=== PATIENT | female | born 1930 | race Caucasian/White ===

== ENCOUNTER 2017-04-18 14:24 | Inpatient (IN) | payer MEDICARE, OTHER ==
[2017-04-18] MEDS ORDERED: traMADol TAB* 50 MG PO ONE (14:40)
--- NOTE | 2017-04-18 15:47 | RAD ---
INDICATION: Trauma, hip pain. COMPARISON: Comparison is made with a prior x-ray study of the left hip from November 12, 2014. TECHNIQUE: An AP view of the pelvis and frontal and lateral views of both hips were obtained. FINDINGS: The patient is status post total left hip replacement surgery. The bones and prostheses are in normal alignment. No fracture is seen. 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 IMPRESSION: NO EVIDENCE FOR FRACTURE, IF THE PATIENT'S SYMPTOMS PERSIST RECOMMEND FOLLOW-UP IMAGING.
--- NOTE | 2017-04-18 15:51 | RAD ---
INDICATION: Trauma left ankle deformity. TECHNIQUE: 3 views of the left ankle were obtained. FINDINGS: There is diffuse soft tissue swelling. The bones appear osteopenic. There is anterior subluxation of the talus relative to the tibia. There is a transverse displaced fracture of the medial malleolus. The distal fracture fragment is distracted, rotated and displaced slightly lateral relative to the proximal fracture fragment. There is also an oblique fracture of the distal fibula the distal fragment is displaced slightly posterior approximately 1 cortical diameter. There is widening of the medial ankle mortise. IMPRESSION: 1. DISPLACED BIMALLEOLAR FRACTURE. 2. WIDENING OF THE MEDIAL ANKLE MORTISE. 3. ANTERIOR SUBLUXATION OF THE TALUS RELATIVE TO THE TIBIA.
--- NOTE | 2017-04-18 15:54 | RAD ---
INDICATION: Left lower leg injury. TECHNIQUE: 2 views of the left lower leg were obtained. FINDINGS: There is diffuse soft tissue swelling. The bones appear osteopenic. Again note is made of a bimalleolar fracture of the ankle with anterior subluxation of the talus. No additional fractures are seen. IMPRESSION: NO ADDITIONAL FRACTURES ARE SEEN.
[2017-04-18 15:58] LABS: Hematocrit 44 % (35-47); Hemoglobin 14.9 g/dl (12.0-16.0); Mean Corpuscular HGB Conc 34 g/dl (31-36); Mean Corpuscular Hemoglobin 33 pg (27-31); Mean Corpuscular Volume 99 fL (80-97); Mean Platelet Volume 11 um3 (7.4-10.4); Red Blood Count 4.49 10^6/ul (4.0-5.4); Red Cell Distribution Width 15 % (10.5-15); White Blood Count 6.9 10^3/ul (3.5-10.8)
[2017-04-18 16:32] LABS: Albumin 4.3 g/dL (3.2-5.2); BUN/Creatinine Ratio 15.9 (8-20); Calcium 9.1 mg/dL (8.6-10.3); EGFR African American 62.7 (>60); EGFR Non-African American 48.7 (>60); Globulin 2.5 g/dL (2-4); Potassium 3.8 mmol/L (3.5-5.0); Total Bilirubin 1.3 mg/dL (0.2-1.0); Total Protein 6.8 g/dL (6.4-8.9)
[2017-04-18 16:45] LABS: Erythrocyte Sed Rate 9 mm/Hr (0-40)
[2017-04-18] MEDS ORDERED: Lidocaine 2% 10 ML* VIAL INJ ONE (17:19)
[2017-04-18] MEDS ORDERED: Morphine INJ* 2 MG/ML 1 ML CARPUJECT IV ONE (17:22)
[2017-04-18] MEDS ORDERED: Lidocaine 2% PF * 5 ML VIAL INJ ONE (17:30)
[2017-04-18] MEDS ORDERED: oxyCODONE/Acetamin 5/325 MG* TAB PO PRN (18:28)
--- NOTE | 2017-04-18 18:45 | RAD ---
INDICATION: Traumatic bimalleolar fracture left ankle status post reduction. COMPARISON: Comparison is made with a prior study of the same day. TECHNIQUE: 2 views of the left ankle were obtained. FINDINGS: The bones are visualized through a plaster splint. Again note is made of a displaced bimalleolar fracture. There is widening of the ankle mortise and mild anterior subluxation of the talus relative to the tibia which appears unchanged. IMPRESSION: TRIMALLEOLAR FRACTURE SUBLUXATION STATUS POST EXTERNAL REDUCTION.
[2017-04-18] MEDS: Carvedilol TAB* 3.125 MG PO SCH (20:32)
--- NOTE | 2017-04-18 20:57 | HP ---
HISTORY AND PHYSICAL: DATE OF ADMISSION: 04/18/17 ADMITTING PROVIDER: Gaudencio Viveros MD PRIMARY CARE PHYSICIAN: Dr. Stewart. PRIMARY UNDERCOAT SPRAYER: Dr. Romeo. CHIEF COMPLAINT: Mechanical fall resulting in left bimalleolar fracture. HISTORY OF PRESENT ILLNESS: The patient is an 87-year-old female with past medical history of systolic CHF; atrial fibrillation, status post pacemaker and ablation; hypertension, who lives alone. The patient at 4:30 a.m. on the morning of admission was getting up to use the restroom and found herself on the floor. She was slowly able to crawl towards the kitchen by 8 hours later and make a phone call for her son to alert him of the situation. She was transported to [facility] Emergency Room for further evaluation. She had an x-ray of her left ankle, which demonstrated a displaced bimalleolar fracture with widening of the medial ankle mortise and anterior subluxation of the talus relative to the tibia with diffuse tissue swelling. The patient has a history of left hip replacement. Hip x- ray demonstrated no evidence for fracture. Lower extremity x-ray demonstrated no other fractures. The patient was evaluated by Dr. Leal of Orthopedics and he was able to sublux and reduce the fracture and applied a splint. His plan is to have surgical management after the tissue swelling has decreased and wanted to see the patient again on with additional x-rays. The patient as noted lives alone in a multi-story building and does have [facility] services on Wednesday and usually, but now services available until Wednesday of this week. The patient is recommended to be completely nonweightbearing on this left extremity and the patient was thought to be not safe for discharge home without adequate support system in place. Son is at the bedside. The patient is a DNR, did not bring her MOLST form with her. PAST MEDICAL HISTORY: Hypertension; systolic CHF (ejection fraction 20% to 25% , December 2014); atrial fibrillation, status post ablation procedure and permanent pacemaker placement, on Xarelto. PAST SURGICAL HISTORY: Includes atrial fibrillation ablation and left hip replacement. MEDICATIONS: Include: 1. Xarelto 15 mg daily. 2. Potassium chloride 10 mEq p.o. daily. 3. Multivitamin 1 tab p.o. daily. 4. Coreg 3.125 mg p.o. b.i.d. 5. Biotin 1 mg p.o. b.i.d. 6. Lasix seemingly 20 mg p.o. daily after an initial taper over the summer, but both son and the patient are not able to give full accounting of this medication. ALLERGIES: To BACTRIM, , PRAVASTATIN, WINE, LATEX. FAMILY MEDICAL HISTORY: The patient's mother and father of heart disease around 72 and 73 respectively. SOCIAL HISTORY: The patient is a never smoker. Does consume small amount of whiskey each day mixed with ice and lemonade. No other drug use. REVIEW OF SYSTEMS: A complete 14-point review of systems was negative except as per HPI. The patient denies any shortness of breath, paroxysmal nocturnal dyspnea, coughing, fevers, chills, nausea, vomiting, diarrhea, blood per bowel movements, or melena. The patient does attest to some baseline fatigue and she usually sleeps in her study where she has a hospital bed instead of going upstairs to her bedroom. The patient denies any significant lower extremity swelling at the moment. Pain is currently well controlled. PHYSICAL EXAMINATION GENERAL: The patient is in no acute distress, lying supine in [facility]. VITAL SIGNS: Blood pressure 182/84, temperature 98.1, pulse rate 76, respiratory rate 20, satting 96% on room air. HEENT: Normocephalic, atraumatic. Pupils are equally round and reactive to light. Extraocular motions intact. Moist mucous membranes. NECK: Supple. No lymphadenopathy. LUNGS: Clear to auscultation bilaterally. Anteriorly with no wheezing, rales, or rhonchi. CARDIOVASCULAR: Regular rate and rhythm with no murmurs, rubs, or gallops. ABDOMEN: Soft, nontender, nondistended. No peritoneal signs. EXTREMITIES: Left lower extremity in a splint, soft tissue swelling observed near the toes. Right lower extremity with trace edema. SKIN: No rashes, no lesions. LABORATORY DATA: Includes white count 6.9, hemoglobin 14.9, hematocrit 44, platelets 137. Sodium 138, potassium 3.8, chloride 102, BUN 17, creatinine 1.07 , glucose 113, total bili 1.3, magnesium 2.0. AST 25, ALT 16, alk phos 81. Myoglobin 134.4, elevated. Total creatinine kinase 63 within normal limits. ASSESSMENT AND PLAN: 1. The patient is an 87-year-old female with past medical history significant for systolic congestive heart failure, last ejection fraction 20% to 25% with likely [id number] aortic stenosis, moderate tricuspid valve regurgitation , moderate mitral valve regurgitation; atrial fibrillation, status post ablation and pacemaker; hypertension; urinary incontinence, presenting with mechanical fall resulting in left bimalleolar ankle fracture, which has already been addressed in the emergency room by Dr. Leal, Orthopedics, with splint after realignment. The patient plans to have followup with Dr. Leal on and eventual surgery after soft tissue swelling reduces. The patient does not have a safe discharge plan from the emergency room, will be admitted to inpatient status, evaluated by Physical Therapy with potential ultimate discharge plan to either a long-term facility or much more support at home than she currently has as she lives alone and is to be nonweightbearing on her left extremity for at least 8 weeks and has significant comorbidities. 2. For her systolic congestive heart failure, not currently volume overloaded. We will continue her Lasix 20 mg daily, her Coreg 3.125 mg daily, consider repeating echo if Dr. Leal request cardiac risk stratification. We will hold her Xarelto for her atrial fibrillation given the hematoma reported near the trauma site. We will put her on medicine telemetry unit, evaluate with BMP , CBC daily for evidence of acute blood loss anemia or electrolyte disturbance. We will continue her potassium chloride 10 mEq daily. The patient is a DNR. Son is her medical surrogate, Ross Nguyen. No DVT prophylaxis given hematoma and risk for bleeding and no SCDs on left leg, but can place on right leg. [id number]/[facility] #: [id number] [facility]
--- NOTE | 2017-04-18 21:13 | CONS ---
CONSULTATION REPORT: DATE OF CONSULT: 04/18/17 REASON FOR CONSULT: Left ankle fracture, bimalleolar, displaced. HISTORY OF PRESENT ILLNESS: The patient is an 87-year-old woman, who lives alone and ambulates with a 4-pronged cane, who lives down the road from her son , who presented to the [facility] Department on April 18 after a fall at home at 4 a.m. The patient states that she fell at home at approximately 4 a.m. She had significant pain about the left ankle. She was unable to get up and walk. She shimmied, moved to the side on the ground a little bit over time and eventually got to a phone and called for help. The patient was down on the ground for a long period of time, perhaps 10 hours. The patient was eventually brought in by her son to the emergency department and x- rays diagnosed her with a left ankle fracture. The patient reports that she had contralateral right ankle fracture surgery by Dr. Pringle approximately 4 years ago. The patient has also had a right hip replacement on 11/12/14. The patient's only complaint now is left ankle pain and swelling. PAST MEDICAL HISTORY: Hypertension, atrial fibrillation, syncope, pacemaker, cardiomyopathy. PAST SURGICAL HISTORY: Left total hip arthroplasty, right ankle fracture, open reduction internal fixation. MEDICATIONS: As a last visit to the emergency department: 1. Simethicone p.r.n.. 2. Naproxen p.r.n. 3. Metolazone. 4. Furosemide. 5. Carvedilol. 6. Aspirin 81 mg p.o. daily. ALLERGIES: BACTRIM (diarrhea), DOFETILIDE (unknown), PRAVASTATIN (unknown), SULFA ANTIBIOTICS (unknown), VALSARTAN (unknown). SOCIAL HISTORY: Denies drug use. 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 Her son lives nearby and is doting. REVIEW OF SYSTEMS: No headache. No chest pain, heart palpitations, shortness of breath. No nausea, vomiting, diarrhea or abdominal pain. PHYSICAL EXAM: At 2:25 p.m., vitals are temperature 98.1 degrees Fahrenheit, heart rate 76, blood pressure 182/84, respiratory rate 20, and oxygen saturation 96% on room air. No acute distress, alert and oriented, appropriate mood and affect. Appropriate dressing and hygiene. Gait is not assessed secondary to injury. Well-coordinated bilateral upper and lower extremities. Left lower extremity exam shows significant soft tissue swelling or bruising about the left ankle. Skin is intact. Skin does not wrinkle medial or lateral ankle. Neurovascularly intact distally. Left lower extremity exam demonstrates no shortening of the hip and neutral rotation of the lower extremity. No pain with passive range of motion of the left hip. DIAGNOSTIC STUDIES/LAB DATA: Labs: White blood cell count 6.9, creatinine 1.07 , myoglobin 134.4, C-reactive protein 15.31. Imaging: X-rays of the left ankle showed a bimalleolar ankle fracture with lateral talar shift. Because of the plantar flexed position of the ankle, there is also some anterior subluxation of the talus. Right hip x-rays were also obtained in the emergency department. Left and right hip x-rays were obtained. Left total hip arthroplasty is in place. No fractures. No dislocation. ASSESSMENT: Displaced left ankle bimalleolar fracture with lateral talar shift PLAN: 1. Secondary to the patient's significant soft tissue swelling currently, she is not a candidate for surgery tonight or tomorrow morning and the swelling needs to resolve prior to operative management, which she will require. 2. Performed hematoma block, left ankle joint. Verbal consent, sterile technique, tolerated well. Placed 22 gauge spinal needle into ankle joint. Aspirated 4 cc of blood. I then infused 8 cc of lidocaine without epinephrine. 3. Ten minutes after the ankle lidocaine block, performed a manipulation of the ankle fracture to try to undo the lateral talar tilt as well as to dorsiflex more the ankle. Applied a posterior split followed by a sugar tong splint. 4. The patient should be nonweightbearing left lower extremity. 5. The patient can go home from the emergency department. Due to lack of social support, the patient and her son may decide to have her admitted for 1 night, until they can establish a safe environment at home given her nonweightbearing status. Given the elevated myoglobin level, additional medical workup may be involved to evaluate for rhabdomyolysis, although creatinine was only slightly elevated. 6. The patient should follow up with me in clinic this , 04/22/17. At that point, we can convert it to a cast and discuss possible surgical dates. 7. I would like postreduction radiographs to see if we improved the reduction with the manipulation maneuver. [id number]/[facility] #: [id number] KAREY
[2017-04-19] MEDS ORDERED: amLODIPine TAB* 5 MG PO ONE (00:02)
[2017-04-19] MEDS ORDERED: hydrALAZINE IV* 20 MG/ML VIAL IV SLOW PU PRN (00:02)
[2017-04-19 05:20] LABS: Hematocrit 40 % (35-47); Hemoglobin 13.2 g/dl (12.0-16.0); Mean Corpuscular HGB Conc 33 g/dl (31-36); Mean Corpuscular Hemoglobin 33 pg (27-31); Mean Corpuscular Volume 100 fL (80-97); Mean Platelet Volume 11 um3 (7.4-10.4); Red Blood Count 3.99 10^6/ul (4.0-5.4); Red Cell Distribution Width 15 % (10.5-15); White Blood Count 5.5 10^3/ul (3.5-10.8)
[2017-04-19 05:22] LABS: Urine Bacteria 1+ (Absent); Urine Bilirubin Negative (Negative); Urine Glucose Negative (Negative); Urine Nitrite Negative (Negative)
[2017-04-19 05:22] LABS: Add Diff/Slide Review? Slide Review Added; Comments Flag Yes
[2017-04-19 05:38] LABS: BUN/Creatinine Ratio 17.7 (8-20); Calcium 8.4 mg/dL (8.6-10.3); EGFR Non-African American 55.2 (>60); Potassium 3.7 mmol/L (3.5-5.0)
[2017-04-19] MEDS: Prenatal Vitamin TAB PO SCH (08:31)
[2017-04-19] MEDS: Carvedilol TAB* 3.125 MG PO SCH ×2 (08:31→21:23)
[2017-04-19] MEDS: Potassium Chlor TAB* 10 MEQ TAB.ER PO SCH (08:31)
[2017-04-19] MEDS: Furosemide TAB* 20 MG PO SCH (08:31)
[2017-04-19] MEDS ORDERED: Influenza VAC *QUAD* 2017-18* 0.5 ML SYRINGE IM ONE (09:00)
--- NOTE | 2017-04-19 10:36 | PN ---
Progress Note - Progress Note Date of Service: 04/19/17 SOAP: Subjective: 87 y/o female s/p mechanical fall with displaced cori fx, reduced in ER by Dr Leal, admitted for social reasons. patient reports understanding of injury and need for surgery. VSS overnight, afebrile. Pain controlled however patient states is painful. Concerned about mobility/ living situation. Objective: General- Well appearing, NAD AO, resting in bed comfortably MSK - Spling intact, no odor/ drainage noted, sensation grossly intact to L toes, + movement L toes, cap refill unable to be assessed due to painted nails. no erythema prox/ distal to splint. Vital Signs Temp 97.4 F 04/19/17 07:41 Pulse 69 04/19/17 07:33 Resp 20 04/19/17 08:00 BP 148/67 04/19/17 07:33 Pulse Ox 95 04/19/17 07:33 Intake & Output 04/18/17 04/19/17 04/19/17 18:59 06:59 18:59 Intake Total 800 440 Output Total 100 Balance 700 440 Weight 178 lb 9.6 oz Intake: Oral 800 440 Output: Urine 100 Other: Estimated Void Medium # Bowel Movements 0 # Voids 1 Assessment: 87 y/o female s/p mechanical fall with displaced cori fx, reduced in ER by Dr Leal. Plan: - Follow up with Dr. Leal on in clinic 04/22/2017 - Social work consult placed - Continue pain management - PT to work with patient today- non-weight bearing. Active Medications Generic Name Dose Route Start Last Admin Trade Name Holdenq PRN Reason Stop Dose Admin Carvedilol 3.125 mg 04/18/17 21:00 04/19/17 08:31 Coreg Tab* PO 3.125 mg BID JODEE Administration Furosemide 20 mg 04/19/17 09:00 04/19/17 08:31 Lasix Tab* PO 20 mg DAILY JODEE Administration Hydralazine HCl 5 mg 04/19/17 00:02 04/19/17 01:48 Apresoline Iv* IV SLOW PU 5 mg Q6H PRN Administration BLOOD PRESSURE Multivitamins 1 tab 04/19/17 09:00 04/19/17 08:31 Vitamin Tab* PO 1 tab DAILY JODEE Administration Oxycodone/Acetaminophen 1 tab 04/18/17 18:28 Percocet 5/325 Tab* PO Q6H PRN PAIN Potassium Chloride 10 meq 04/19/17 09:00 04/19/17 08:31 Klor Con Er Tab* PO 10 meq DAILY JODEE Administration
--- NOTE | 2017-04-19 15:45 | PN ---
Subjective Date of Service: 04/19/17 Interval History: LOUISE. Worked with PT, able to get to side of bed but unable to stand 2/2 dizziness. Wanting Rehab ([facility] referral sent). Objective Active Medications: Carvedilol (Coreg Tab*) 3.125 mg PO BID [facility] Last Admin: 04/19/17 08:31 Dose: 3.125 mg Furosemide (Lasix Tab*) 20 mg PO DAILY [facility] Last Admin: 04/19/17 08:31 Dose: 20 mg Hydralazine HCl (Apresoline Iv*) 5 mg IV SLOW PU Q6H PRN PRN Reason: BLOOD PRESSURE Last Admin: 04/19/17 01:48 Dose: 5 mg Multivitamins ( Vitamin Tab*) 1 tab PO DAILY [facility] Last Admin: 04/19/17 08:31 Dose: 1 tab Oxycodone/Acetaminophen (Percocet 5/325 Tab*) 1 tab PO Q6H PRN PRN Reason: PAIN Potassium Chloride (Klor Con Er Tab*) 10 meq PO DAILY [facility] Last Admin: 04/19/17 08:31 Dose: 10 meq Vital Signs 04/18/17 04/18/17 04/18/17 18:41 19:30 23:52 Temperature 97.5 F 97.1 F Pulse Rate 87 70 Respiratory 22 20 Rate Blood Pressure 163/86 186/78 183/74 (mmHg) O2 Sat by Pulse 96 97 Oximetry 04/19/17 04/19/17 04/19/17 01:43 03:31 07:33 Temperature 98.2 F Pulse Rate 70 69 Respiratory 20 20 Rate Blood Pressure 184/78 149/60 148/67 (mmHg) O2 Sat by Pulse 97 95 Oximetry 04/19/17 04/19/17 04/19/17 07:41 08:00 11:44 Temperature 97.4 F 97.3 F Pulse Rate 71 Respiratory 20 20 Rate Blood Pressure 141/67 (mmHg) O2 Sat by Pulse 96 Oximetry Oxygen Devices in Use Now: Non-Rebreather Appearance: NAD Eyes: No Scleral Icterus, PERRLA Ears/Nose/Mouth/Throat: NL Teeth, Lips, Gums, Mucous Membranes Moist Neck: NL Appearance and Movements; NL JVP, Trachea Midline Respiratory: Symmetrical Chest Expansion and Respiratory Effort, Clear to Auscultation Cardiovascular: NL Sounds; No Murmurs; No JVD, RRR Abdominal: NL Sounds; No Tenderness; No Distention, No Hepatosplenomegaly Extremities: No Edema, - - left ankle in splint, sensation intact. Skin: No Rash or Ulcers Neurological: Alert and Oriented x 3 Nutrition: Taking PO's Result Diagrams: 04/19/17 05:02 04/19/17 05:02 Additional Lab and Data: Laboratory Results - last 24 hr 04/18/17 04/18/17 04/18/17 15:45 15:45 15:45 WBC 6.9 RBC 4.49 Hgb 14.9 Hct 44 MCV 99 H MCH 33 H MCHC 34 RDW 15 Plt Count 137 L MPV 11 H Neut % (Auto) 78.4 Lymph % (Auto) 10.3 L [place] % (Auto) 9.5 H Eos % (Auto) 1.0 Baso % (Auto) 0.8 Absolute Neuts (auto) 5.4 Absolute Lymphs (auto) 0.7 L Absolute Monos (auto) 0.7 Absolute Eos (auto) 0.1 Absolute Basos (auto) 0.1 Absolute Nucleated RBC 0 Nucleated RBC % 0 ESR 9 Sodium 138 Potassium 3.8 Chloride 102 Carbon Dioxide 25 Anion Gap 11 BUN 17 Creatinine 1.07 H Est GFR ( Amer) 62.7 Est GFR (Non-Af Amer) 48.7 BUN/Creatinine Ratio 15.9 Glucose 113 H Lactic Acid 1.8 Calcium 9.1 Magnesium 2.0 Total Bilirubin 1.30 H AST 25 ALT 16 Alkaline Phosphatase 81 Total Creatine Kinase 63 Myoglobin 134.4 H C-React Prot High Sens 15.31 Total Protein 6.8 Albumin 4.3 Globulin 2.5 Albumin/Globulin Ratio 1.7 Urine Color Urine Appearance Urine pH Ur Specific [place] Urine Protein Urine Ketones Urine Blood Urine Nitrate Urine Bilirubin Urine Urobilinogen Ur Leukocyte Esterase Urine WBC (Auto) Urine RBC (Auto) Ur Squamous Epith Cells Urine Bacteria Urine Glucose Urine Ascorbic Acid 04/19/17 04/19/17 04/19/17 00:05 05:02 05:02 WBC 5.5 RBC 3.99 L Hgb 13.2 Hct 40 MCV 100 H MCH 33 H MCHC 33 RDW 15 Plt Count 180 MPV 11 H Neut % (Auto) 72.6 Lymph % (Auto) 12.3 L [place] % (Auto) 11.9 H Eos % (Auto) 2.5 Baso % (Auto) 0.7 Absolute Neuts (auto) 4.0 Absolute Lymphs (auto) 0.7 L Absolute Monos (auto) 0.6 Absolute Eos (auto) 0.1 Absolute Basos (auto) 0 Absolute Nucleated RBC 0.01 Nucleated RBC % 0.1 ESR Sodium 135 Potassium 3.7 Chloride 102 Carbon Dioxide 26 Anion Gap 7 BUN 17 Creatinine 0.96 H Est GFR ( Amer) 71.0 Est GFR (Non-Af Amer) 55.2 BUN/Creatinine Ratio 17.7 Glucose 108 H Lactic Acid Calcium 8.4 L Magnesium Total Bilirubin AST ALT Alkaline Phosphatase Total Creatine Kinase Myoglobin C-React Prot High Sens Total Protein Albumin Globulin Albumin/Globulin Ratio Urine Color Yellow Urine Appearance Turbid Urine pH 5.0 Ur Specific [place] 1.020 Urine Protein 1+(30 mg/dl) H Urine Ketones Negative Urine Blood 1+ H Urine Nitrate Negative Urine Bilirubin Negative Urine Urobilinogen Negative Ur Leukocyte Esterase Trace H Urine WBC (Auto) 1+(6-10/hpf) H Urine RBC (Auto) Trace(0-2/hpf) Ur Squamous Epith Cells Present H Urine Bacteria 1+ H Urine Glucose Negative Urine Ascorbic Acid * H Assess/Plan/Problems-Billing Assessment: 87 yo female PMH systolic CHF (EF 20-25%), Afib s/p PPM and ablation p/w mechanical fall c/b left bimallellor fracture. Lives alone unable to take of self, here for PT and rehab placement. Eventual surgery. - Patient Problems (1) Bimalleolar fracture of left ankle Current Visit: Yes Status: Acute Code(s): S82.842A - DISPLACED BIMALLEOLAR FRACTURE OF LEFT LOWER LEG, INIT SNOMED Code(s): 584712739 Comment: s/p splint with Dr. Leal who wants to see in his clinic . Eventual surgery once soft tissue swelling improves. non-weightbearing physical therapy and rehab referral. pain control will repeat Xray per Ortho, appreciate recs. (2) Systolic CHF, chronic Current Visit: Yes Status: Acute Code(s): I50.22 - CHRONIC SYSTOLIC ( CONGESTIVE) HEART FAILURE SNOMED Code(s): 879743976 Comment: stable continue coreg 3.125mg BID and lasix 20mg po daily EF 20-25% (3) Afib Current Visit: No Status: Acute Priority: High Code(s): I48.91 - UNSPECIFIED ATRIAL FIBRILLATION SNOMED Code(s): 02089967 Comment: s/p PPM and ablation. continue coreg 3.125mg BID Xarelto held given hematoma at left ankle fracture continue telemetry, no Afib or RVR overnight. Paced. (4) Artificial cardiac pacemaker Current Visit: No Status: Acute Code(s): Z95.0 - PRESENCE OF CARDIAC PACEMAKER SNOMED Code(s): 206698353 Status and Disposition: medicine inpatient, likely to Acute Rehab facility on 04/21 or 04/22 Attending: Gaudencio Viveros
[2017-04-20 04:39] LABS: Hematocrit 39 % (35-47); Hemoglobin 12.8 g/dl (12.0-16.0); Mean Corpuscular HGB Conc 33 g/dl (31-36); Mean Corpuscular Hemoglobin 33 pg (27-31); Mean Corpuscular Volume 99 fL (80-97); Mean Platelet Volume 11 um3 (7.4-10.4); Red Blood Count 3.91 10^6/ul (4.0-5.4); Red Cell Distribution Width 15 % (10.5-15); White Blood Count 4.9 10^3/ul (3.5-10.8)
[2017-04-20 04:40] LABS: Add Diff/Slide Review? Slide Review Added; Comments Flag Yes
[2017-04-20 04:53] LABS: BUN/Creatinine Ratio 16.5 (8-20); Calcium 8.5 mg/dL (8.6-10.3); EGFR African American 65.5 (>60); EGFR Non-African American 50.9 (>60); Potassium 3.8 mmol/L (3.5-5.0)
--- NOTE | 2017-04-20 08:57 | PN ---
Progress Note - Progress Note Date of Service: 04/20/17 SOAP: Subjective: resting comfortably in bed with no complaints Objective: Vital Signs Temp Pulse Resp BP Pulse Ox 98.1 F 70 20 154/56 96 04/20/17 07:31 04/20/17 07:31 04/20/17 07:31 04/20/17 07:31 04/20/17 07:31 Laboratory Last Values WBC 4.9 10^3/ul (3.5-10.8) 04/20/17 04:33 RBC 3.91 10^6/ul (4.0-5.4) L 04/20/17 04:33 Hgb 12.8 g/dl (12.0-16.0) 04/20/17 04:33 Hct 39 % (35-47) 04/20/17 04:33 MCV 99 fL (80-97) H 04/20/17 04:33 MCH 33 pg (27-31) H 04/20/17 04:33 MCHC 33 g/dl (31-36) 04/20/17 04:33 RDW 15 % (10.5-15) 04/20/17 04:33 Plt Count 195 10^3/ul (150-450) 04/20/17 04:33 MPV 11 um3 (7.4-10.4) H 04/20/17 04:33 Neut % (Auto) 65.3 % (38-83) 04/20/17 04:33 Lymph % (Auto) 18.1 % (25-47) L 04/20/17 04:33 Hendricks % (Auto) 10.6 % (1-9) H 04/20/17 04:33 Eos % (Auto) 5.2 % (0-6) 04/20/17 04:33 Baso % (Auto) 0.8 % (0-2) 04/20/17 04:33 Absolute Neuts (auto) 3.2 10^3/ul (1.5-7.7) 04/20/17 04:33 Absolute Lymphs (auto) 0.9 10^3/ul (1.0-4.8) L 04/20/17 04:33 Absolute Monos (auto) 0.5 10^3/ul (0-0.8) 04/20/17 04:33 Absolute Eos (auto) 0.3 10^3/ul (0-0.6) 04/20/17 04:33 Absolute Basos (auto) 0 10^3/ul (0-0.2) 04/20/17 04:33 Absolute Nucleated RBC 0 10^3/ul 04/20/17 04:33 Nucleated RBC % 0.1 04/20/17 04:33 ESR 9 mm/Hr (0-40) 04/18/17 15:45 Sodium 131 mmol/L (133-145) L 04/20/17 04:32 Potassium 3.8 mmol/L (3.5-5.0) 04/20/17 04:32 Chloride 100 mmol/L (101-111) L 04/20/17 04:32 Carbon Dioxide 25 mmol/L (22-32) 04/20/17 04:32 Anion Gap 6 mmol/L (2-11) 04/20/17 04:32 BUN 17 mg/dL (6-24) 04/20/17 04:32 Creatinine 1.03 mg/dL (0.51-0.95) H 04/20/17 04:32 Est GFR ( Amer) 65.5 (>60) 04/20/17 04:32 Est GFR (Non-Af Amer) 50.9 (>60) 04/20/17 04:32 BUN/Creatinine Ratio 16.5 (8-20) 04/20/17 04:32 Glucose 106 mg/dL (70-100) H 04/20/17 04:32 Lactic Acid 1.8 mmol/L (0.5-2.0) 04/18/17 15:45 Calcium 8.5 mg/dL (8.6-10.3) L 04/20/17 04:32 Magnesium 2.0 mg/dL (1.9-2.7) 04/18/17 15:45 Total Bilirubin 1.30 mg/dL (0.2-1.0) H 04/18/17 15:45 AST 25 U/L (13-39) 04/18/17 15:45 ALT 16 U/L (7-52) 04/18/17 15:45 Alkaline Phosphatase 81 U/L (34-104) 04/18/17 15:45 Total Creatine Kinase 63 U/L (10-223) 04/18/17 15:45 Myoglobin 134.4 ng/mL (14.3-65.8) H 04/18/17 15:45 C-React Prot High Sens 15.31 mg/L 04/18/17 15:45 Total Protein 6.8 g/dL (6.4-8.9) 04/18/17 15:45 Albumin 4.3 g/dL (3.2-5.2) 04/18/17 15:45 Globulin 2.5 g/dL (2-4) 04/18/17 15:45 Albumin/Globulin Ratio 1.7 (1-3) 04/18/17 15:45 Urine Color Yellow 04/19/17 00:05 Urine Appearance Turbid 04/19/17 00:05 Urine pH 5.0 (5-9) 04/19/17 00:05 Ur Specific Worth 1.020 (1.010-1.030) 04/19/17 00:05 Urine Protein 1+(30 mg/dl) (Negative) H 04/19/17 00:05 Urine Ketones Negative (Negative) 04/19/17 00:05 Urine Blood 1+ (Negative) H 04/19/17 00:05 Urine Nitrate Negative (Negative) 04/19/17 00:05 Urine Bilirubin Negative (Negative) 04/19/17 00:05 Urine Urobilinogen Negative (Negative) 04/19/17 00:05 Ur Leukocyte Esterase Trace (Negative) H 04/19/17 00:05 Urine WBC (Auto) 1+(6-10/hpf) (Absent) H 04/19/17 00:05 Urine RBC (Auto) Trace(0-2/hpf) (Absent) 04/19/17 00:05 Ur Squamous Epith Cells Present (Absent) H 04/19/17 00:05 Urine Bacteria 1+ (Absent) H 04/19/17 00:05 Urine Glucose Negative (Negative) 04/19/17 00:05 Urine Ascorbic Acid * (Negative) H 04/19/17 00:05 incision: c/d; splint intact PE: able to wiggles toes with intact sensation Assessment: s/p bimall fracture with closed reduction in ER Plan: 1) NWB LLE 2) Awaiting rehab placement 3) Lovenox 40mg subQ daily at time of D/C to rehab 4) F/U with Dr. Leal on 04/22
[2017-04-20] MEDS: Carvedilol TAB* 3.125 MG PO SCH ×2 (09:07→20:41)
[2017-04-20] MEDS: Prenatal Vitamin TAB PO SCH (09:08)
[2017-04-20] MEDS: Potassium Chlor TAB* 10 MEQ TAB.ER PO SCH (09:08)
[2017-04-20] MEDS: Furosemide TAB* 20 MG PO SCH (09:09)
--- NOTE | 2017-04-20 13:13 | PN ---
Subjective Date of Service: 04/20/17 Interval History: worked with PT again. Not dizzy on sitting on edge of bed. No other complaints Objective Active Medications: Carvedilol (Coreg Tab*) 3.125 mg PO BID [facility] Last Admin: 04/20/17 09:07 Dose: 3.125 mg Furosemide (Lasix Tab*) 20 mg PO DAILY [facility] Last Admin: 04/20/17 09:09 Dose: 20 mg Hydralazine HCl (Apresoline Iv*) 5 mg IV SLOW PU Q6H PRN PRN Reason: BLOOD PRESSURE Last Admin: 04/19/17 01:48 Dose: 5 mg Multivitamins ( Vitamin Tab*) 1 tab PO DAILY [facility] Last Admin: 04/20/17 09:08 Dose: 1 tab Oxycodone/Acetaminophen (Percocet 5/325 Tab*) 1 tab PO Q6H PRN PRN Reason: PAIN Potassium Chloride (Klor Con Er Tab*) 10 meq PO DAILY [facility] Last Admin: 04/20/17 09:08 Dose: 10 meq Rivaroxaban (Xarelto(*)) 15 mg PO DAILY [facility] Vital Signs 04/19/17 04/19/17 04/19/17 15:47 15:50 19:47 Temperature 97.3 F 99.1 F Pulse Rate 70 71 70 Respiratory 20 18 Rate Blood Pressure 148/65 154/69 153/62 (mmHg) O2 Sat by Pulse 97 99 95 Oximetry 04/19/17 04/19/17 04/20/17 20:00 23:57 03:47 Temperature 98.0 F 97.8 F Pulse Rate 70 70 Respiratory 18 20 16 Rate Blood Pressure 148/56 153/65 (mmHg) O2 Sat by Pulse 94 94 Oximetry 04/20/17 04/20/17 04/20/17 07:31 08:00 11:30 Temperature 98.1 F 97.9 F Pulse Rate 70 70 Respiratory 20 20 20 Rate Blood Pressure 154/56 155/68 (mmHg) O2 Sat by Pulse 96 95 Oximetry Oxygen Devices in Use Now: Non-Rebreather Appearance: NAD. lying in bed Eyes: No Scleral Icterus, PERRLA Ears/Nose/Mouth/Throat: NL Teeth, Lips, Gums, Mucous Membranes Moist Neck: NL Appearance and Movements; NL JVP, Trachea Midline Respiratory: Symmetrical Chest Expansion and Respiratory Effort, Clear to Auscultation Cardiovascular: NL Sounds; No Murmurs; No JVD, RRR Abdominal: NL Sounds; No Tenderness; No Distention, No Hepatosplenomegaly Lymphatic: No Auricular Adenopathy Extremities: No Edema, - - left ankle in splint, no proximal swelling or erythema Skin: No Rash or Ulcers Neurological: Alert and Oriented x 3, NL Sensation Result Diagrams: 04/20/17 04:33 04/20/17 04:32 Additional Lab and Data: Laboratory Results - last 24 hr 04/20/17 04/20/17 04:32 04:33 WBC 4.9 RBC 3.91 L Hgb 12.8 Hct 39 MCV 99 H MCH 33 H MCHC 33 RDW 15 Plt Count 195 MPV 11 H Neut % (Auto) 65.3 Lymph % (Auto) 18.[address] [place] % (Auto) 10.6 H Eos % (Auto) 5.2 Baso % (Auto) 0.8 Absolute Neuts (auto) 3.2 Absolute Lymphs (auto) 0.9 L Absolute Monos (auto) 0.5 Absolute Eos (auto) 0.3 Absolute Basos (auto) 0 Absolute Nucleated RBC 0 Nucleated RBC % 0.1 Sodium 131 L Potassium 3.8 Chloride 100 L Carbon Dioxide 25 Anion Gap 6 BUN 17 Creatinine 1.03 H Est GFR ( Amer) 65.5 Est GFR (Non-Af Amer) 50.9 BUN/Creatinine Ratio 16.5 Glucose 106 H Calcium 8.5 L Microbiology and Other Data: Microbiology 04/19/17 00:05 Urine Culture - Preliminary Urine Escherichia Coli Normal Shelly Assess/Plan/Problems-Billing Assessment: 87 yo female PMH systolic CHF (EF 20-25%), Afib s/p PPM and ablation p/w mechanical fall c/b left bimallellor fracture. Lives alone unable to take of self, here for PT and rehab placement. Eventual surgery, likely next week. - Patient Problems (1) Bimalleolar fracture of left ankle Current Visit: Yes Status: Acute Code(s): S82.842A - DISPLACED BIMALLEOLAR FRACTURE OF LEFT LOWER LEG, INIT SNOMED Code(s): 250664512 Comment: s/p splint with Dr. Leal who wants to see in his clinic . Eventual surgery once soft tissue swelling improves. non-weightbearing physical therapy rehab placment pending. pain control will repeat Xray per Ortho, appreciate recs. (2) Systolic CHF, chronic Current Visit: Yes Status: Acute Code(s): I50.22 - CHRONIC SYSTOLIC ( CONGESTIVE) HEART FAILURE SNOMED Code(s): 231469256 Comment: stable continue coreg 3.125mg BID and lasix 20mg po daily EF 20-25% (3) Afib Current Visit: No Status: Acute Priority: High Code(s): I48.91 - UNSPECIFIED ATRIAL FIBRILLATION SNOMED Code(s): 78019564 Comment: s/p PPM and ablation. continue coreg 3.125mg BID Xarelto held given hematoma at left ankle fracture, now will restarted after discussion with Dr. Leal continue telemetry, no Afib or RVR overnight. Paced. (4) Artificial cardiac pacemaker Current Visit: No Status: Acute Code(s): Z95.0 - PRESENCE OF CARDIAC PACEMAKER SNOMED Code(s): 894682850 Status and Disposition: medicine inpatient, planned to [facility] on 04/21 Attending: Gaudencio Viveros
[2017-04-20] MEDS: Rivaroxaban TAB(*) 15 MG PO SCH (17:29)
[2017-04-21 05:50] LABS: Hematocrit 39 % (35-47); Hemoglobin 13.2 g/dl (12.0-16.0); Mean Corpuscular HGB Conc 34 g/dl (31-36); Mean Corpuscular Hemoglobin 33 pg (27-31); Mean Corpuscular Volume 100 fL (80-97); Mean Platelet Volume 11 um3 (7.4-10.4); Red Blood Count 3.96 10^6/ul (4.0-5.4); Red Cell Distribution Width 14 % (10.5-15); White Blood Count 4.1 10^3/ul (3.5-10.8)
[2017-04-21 06:00] LABS: Comments Flag Yes
[2017-04-21 06:01] LABS: Add Diff/Slide Review? Slide Review Added
[2017-04-21 06:04] LABS: BUN/Creatinine Ratio 18.3 (8-20); Calcium 8.5 mg/dL (8.6-10.3); EGFR African American 64.8 (>60); EGFR Non-African American 50.4 (>60); Potassium 3.9 mmol/L (3.5-5.0)
[2017-04-21] MEDS: Potassium Chlor TAB* 10 MEQ TAB.ER PO SCH (07:48)
[2017-04-21] MEDS: Furosemide TAB* 20 MG PO SCH (07:48)
[2017-04-21] MEDS: Carvedilol TAB* 3.125 MG PO SCH (07:48)
[2017-04-21] MEDS: Prenatal Vitamin TAB PO SCH (07:48)
[2017-04-21] MEDS: Rivaroxaban TAB(*) 15 MG PO SCH (07:48)
--- NOTE | 2017-04-21 11:03 | DS ---
CC: Dr. Stewart * DISCHARGE SUMMARY: DATE OF ADMISSION: 04/18/17 DATE OF DISCHARGE: 04/21/17 ADMITTING AND ATTENDING PROVIDER: Gaudencio Viveros MD PRIMARY CARE PHYSICIAN: Dr. Stewart. CHIEF COMPLAINT: Mechanical fall resulting in left bimalleolar fracture. HISTORY OF PRESENT ILLNESS AND HOSPITAL COURSE: The patient is an 87-year-old female with past medical history of systolic CHF, last EF 20% to 25% in December 2014; atrial fibrillation, status post ablation and pacemaker; hypertension, living alone, who had a mechanical fall at 4:30 a.m., slowly was able to crawl to a phone approximately 8 to 10 hours later and alert her son. She was taken to [facility] Emergency Room. X-ray of left ankle demonstrated displaced bimalleolar with widening of the medial ankle mortise and anterior subluxation of the talus relative to the tibia with diffuse tissue swelling. The patient also has a history of left hip replacement, but hip x-ray demonstrated no evidence of acute fracture. Lower extremity x-ray demonstrated no other fractures. The patient was evaluated by Dr. Leal of Orthopedics. He was able to sublux and reduce the fracture and applied a splint. He applied a hematoma block prior to these procedures. Given that the patient lives alone and has significant comorbidities and will be nonweightbearing to her left leg, she was not deemed safe for transfer back home. She was admitted for further physical therapy and ultimate acute rehab placement. She worked with physical therapy daily. First day was dizzy, getting up to the side of the bed; second day improved, demonstrated good strength in other leg. [facility] for continued physical therapy and rehabilitation. She will need to see Dr. Leal in his office on 04/22/17 as she will eventually need surgical intervention after her soft tissue swelling decreases. MEDICATIONS ON DISCHARGE: Include: 1. Xarelto 15 mg daily. 2. Potassium chloride 10 mEq p.o. daily. 3. Multivitamin 1 tab once daily. 4. Coreg 3.125 mg p.o. b.i.d. 5. Biotin 1 mg p.o. b.i.d. 6. Lasix 20 mg daily. 7. Oxycodone 5/325 q.6 hours p.r.n. for pain (new medication). DIET: Cardiac, heart healthy unchanged. RESTRICTIONS: No activity restrictions except for nonweightbearing to left lower extremity. FOLLOWUP: Please follow up with Dr. Leal, Orthopedics, on 04/22/17 and [facility]. Stewart within 3 days of discharge. TIME SPENT ON DISCHARGE: 32 minutes. [id number]/[facility] #: [id number] MTDD
[2017-04-21 15:27] VITALS: BP 117/63
== END 2017-04-21 12:05 | DRG 563 ==
LOC: ED 14:24 → MEDTELE 18:07
PROVIDERS: ADMIT Internal Medicine; ATTEND Internal Medicine
PROC: 0SSGXZZ Reposition Left Ankle Joint, External Approach (ICD-10-PCS; principal; 2017-04-18)
PROC: 3E0T3BZ Introduction of Anesthetic Agent into Peripheral Nerves and Plexi, Percutaneous Approach (ICD-10-PCS; 2017-04-18)
PROC: 0S9G3ZZ Drainage of Left Ankle Joint, Percutaneous Approach (ICD-10-PCS; 2017-04-18)
DX: S82.842A Displaced bimalleolar fracture of left lower leg, initial encounter for closed fracture (principal); I48.91 Unspecified atrial fibrillation; I08.3 Combined rheumatic disorders of mitral, aortic and tricuspid valves; I42.9 Cardiomyopathy, unspecified; I50.22 Chronic systolic (congestive) heart failure; I11.0 Hypertensive heart disease with heart failure; Z66 Do not resuscitate; W18.30XA Fall on same level, unspecified, initial encounter; Z96.642 Presence of left artificial hip joint; Z95.0 Presence of cardiac pacemaker; Z88.8 Allergy status to other drugs, medicaments and biological substances; Y92.008 Other place in unspecified non-institutional (private) residence as the place of occurrence of the external cause; Z88.1 Allergy status to other antibiotic agents; Z91.040 Latex allergy status; Z82.49 Family history of ischemic heart disease and other diseases of the circulatory system; Z79.01 Long term (current) use of anticoagulants
CPT/HCPCS: 36415; 73523; 80048; 80053; 81003; 81015; 82550; 83605; 83735; 83874; 85025; 85652; 86141; 87077; 87086; 87186; 90686; A9270-GY; J0360; J2001; J2270

== ENCOUNTER 2017-07-09 16:45 | Emergency (ER) | payer MEDICARE, OTHER ==
[2017-07-09 17:21] LABS: ABS Basophils 0 10^3/ul (0-0.2); ABS Eosinophils 0.4 10^3/ul (0-0.6); ABS Lymphocytes 1.1 10^3/ul (1.0-4.8); ABS Monocytes 0.6 10^3/ul (0-0.8); ABS Neutrophils 5.6 10^3/ul (1.5-7.7); ABS Nucleated RBC 0 10^3/ul; Eosinophil % 4.8 % (0-6); Hematocrit 43 % (35-47); Hemoglobin 14.4 g/dl (12.0-16.0); Lymphocyte % 14.4 % (25-47); Mean Corpuscular HGB Conc 33 g/dl (31-36); Mean Corpuscular Hemoglobin 31 pg (27-31); Mean Corpuscular Volume 93 fL (80-97); Mean Platelet Volume 11 um3 (7.4-10.4); Nucleated Red Blood Cells % 0; Platelet Count 149 10^3/ul (150-450); Red Blood Count 4.64 10^6/ul (4.0-5.4); Red Cell Distribution Width 15 % (10.5-15); White Blood Count 7.7 10^3/ul (3.5-10.8)
[2017-07-09 17:32] LABS: EGFR Non-African American 50.4 (>60); INR 1.58 (0.77-1.02)
--- NOTE | 2017-07-09 17:43 | RAD ---
Indication: Weakness, blurred vision, dizziness. Comparison: No relevant prior exams available on the [facility] PACS for comparison. Technique: Upright AP 1724 hours Report: Mild prominence of the interstitial markings. No pulmonary consolidation, pleural effusion, pneumothorax. Cardiomegaly. RIGHT atrial, RIGHT ventricular, and coronary sinus level pacemaker leads. Unremarkable central pulmonary vasculature and mediastinal contours. IMPRESSION: Cardiomegaly without compelling evidence for pulmonary edema. No evidence for acute intrathoracic disease.
[2017-07-09 21:15] LABS: Urine Appearance Clear; Urine Blood Negative (Negative); Urine Color Straw; Urine Ketones Negative (Negative); Urine Protein Negative (Negative); Urine Specific Gravity 1.006 (1.010-1.030); Urine Urobilinogen Negative (Negative)
[2017-07-09] MEDS ORDERED: Azithromycin TAB* 250 MG PO ONE (22:06)
[2017-07-09 22:13] VITALS: BP 151/85
--- NOTE | 2017-07-09 22:25 | ED ---
Andrew Rajan Julia, scribed for Donte Saul MD on 07/09/17 at 1710 . Complex/Multi-Sys Presentation - HPI Summary HPI Summary: This patient is a 87 year old F BIBA to [facility] with a chief complaint of dizziness with blurred vision during physical therapy around 16:50 today with spontaneous resolution. Patient reports feeling a low heart rate during physical therapy for her L ankle post surgery 2 months ago. Patient reports having previous symptoms. Patient denies chest pain or pressure, vomiting, diarrhea, decrease in appetite, or cough. - History Of Current Complaint Chief Complaint: EDGeneral Time Seen by Provider: 07/09/17 16:48 Hx Obtained From: Patient Onset/Duration: Sudden Onset Timing: Minutes Severity Currently: None Associated Signs And Symptoms: Positive: Other - dizziness, blurred vision, low heart rate - Allergies/Home Medications Allergies/Adverse Reactions: Allergies Allergy/AdvReac Type Severity Reaction Status Date / Time Sulfamethoxazole Allergy Intermediate Diarrhea Verified 05/05/17 09:22 w/Trimethoprim [From Bactrim] Dofetilide [From Tikosyn] Allergy Unknown Unknown Verified 05/05/17 09:22 Reaction Details Pravastatin [From Pravachol] Allergy Unknown Unknown Verified 05/05/17 09:22 Reaction Details Sulfa Antibiotics Allergy Unknown Unknown Verified 05/05/17 09:22 Reaction Details Valsartan [From Diovan] Allergy Unknown Unknown Verified 05/05/17 09:22 Reaction Details Digoxin Allergy Hair Loss Verified 05/05/17 09:22 Diltiazem Allergy Unknown Verified 05/05/17 09:22 Reaction Details Latex Allergy Unknown Verified 05/05/17 09:22 Reaction Details Metoprolol Allergy Unknown Verified 05/05/17 09:22 Reaction Details Peanut-containing Drug Allergy Unknown Verified 05/05/17 09:22 Products Reaction Details PMH/Surg Hx/FS Hx/Imm Hx Cardiovascular History: Reports: Hx Congestive Heart Failure, Hx Hypertension - on meds, Hx Pacemaker/ICD - [employer] Comment Only: Other Cardiovascular Problems/Disorders - a fib Respiratory History: Denies: Other Respiratory Problems/Disorders GI History: Reports: Hx Gastroesophageal Reflux Disease Denies: Other GI Disorders History: Reports: Other Problems/Disorders - urinary incontinence Musculoskeletal History: Reports: 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 Left total hip, 2016, [facility]. tonsilectomy, age 8. L ankle, 2018 Hx Anesthesia Reactions: No Infectious Disease History: No Infectious Disease History: Denies: Traveled Outside the [place] in Last 30 Days - Family History Known Family History: Positive: Cardiac Disease - CHF Negative: Diabetes - Social History Alcohol Use: None Alcohol Amount: I drink a lot Hx Substance Use: No Substance Use Type: Reports: None Hx Tobacco Use: No Smoking Status (MU): Never Smoked Tobacco Review of Systems Negative: Fever, Chills Negative: Erythema Negative: Sore Throat Positive: Other - feeling of low HR. Negative: Chest Pain Negative: Shortness Of Breath, Cough Negative: Abdominal Pain, Vomiting, Nausea Negative: dysuria, hematuria Negative: Myalgia Negative: Rash Neurological: Other - dizziness with blurred vision All Other Systems Reviewed And Are Negative: Yes Physical Exam - Summary Physical Exam Summary: NORMAL PHYSICAL EXAM ADULT (6+ years) Constitutional: Well-developed, Well-nourished, Alert. (-) Distressed Skin: Warm, Dry HENT: Normocephalic; Atraumatic Eyes: Conjunctiva normal Neck: Musculoskeletal ROM normal neck. (-) JVD, (-) Stridor, (-) Tracheal deviation Cardio: Rhythm regular, rate normal, Heart sounds normal; Intact distal pulses; The pedal pulses are 2+ and symmetric. Radial pulses are 2+ and symmetric. (-) Murmur Pulmonary/Chest wall: Effort normal. (-) Respiratory distress, (-) Wheezes, (-) Rales, Rhonchi in R lower lung Abd: Soft, (-) Tenderness, (-) Distension, (-) Guarding, (-) Rebound Musculoskeletal: (-) Edema Lymph: (-) Cervical adenopathy Neuro: Alert, Oriented x3 Psych: Mood and affect Normal Triage Information Reviewed: Yes Vital Signs On Initial Exam: Initial Vitals Temp Pulse Resp BP Pulse Ox 96.4 F 79 18 179/78 96 07/09/17 16:50 07/09/17 16:50 07/09/17 16:50 07/09/17 16:50 07/09/17 16:50 Vital Signs Reviewed: Yes Diagnostics - Vital Signs Vital Signs Temp Pulse Resp BP Pulse Ox 07/09/17 16:50 96.4 F 79 18 179/78 96 - Laboratory Result Diagrams: 07/09/17 17:07 07/09/17 17:07 Lab Statement: Any lab studies that have been ordered have been reviewed, and results considered in the medical decision making process. - Radiology CXR Radiology Interpretation Completed By: Radiologist - Cardiomegaly without compelling evidence for pulmonary edema. No evidence for acute intrathoracic disease. ED Physician has reviewed this report. - EKG 16:49 Cardiac Rate: NL EKG Rhythm: Sinus Rhythm - at 70 BPM EKG Interpretation: reveals no present STEMI, is paced. Re-Evaluation - Re-Evaluation 1st Re-Evaluation Time: 22:05 Change: Unchanged Comment: Patient reports she feels fine and is typically wheelchair bound but has been ambulating post surgery with boot. Complex Multi-Symp Course/Dx Course Of Treatment: Test results with no significant abnormalities. No suspicion for CVA or DC. In the ED course the patient was given antibiotics for abnormal lungs. - Diagnoses Provider Diagnoses: Dizziness, Abnormal lung sounds Discharge - Discharge Plan Condition: Stable Disposition: HOME Prescriptions: Azithromycin TAB* [Zithromax TAB (Z-JINNY) 250 mg #6 tabs] 2 tab PO .TODAY, THEN 1 DAILY #1 jinny Patient Education Materials: Dizziness (ED) Referrals: Jimi Stewart MD [Primary Care Provider] - Additional Instructions: Patient will be discharged with an antibiotics prescription and instructed to follow up with PCP in next 2 days. RETURN TO THE EMERGENCY DEPARTMENT FOR CHANGING OR WORSENING SYMPTOMS. RETURN TO EMERGENCY DEPARTMENT FOR FEVER. The documentation as recorded by the Andrew molina Julia accurately reflects the service I personally performed and the decisions made by , Donte Saul MD.
== END 2017-07-09 22:43 | disposition home or self-care (01) ==
LOC: ED 16:45
DX: R42 Dizziness and giddiness (principal); R09.89 Other specified symptoms and signs involving the circulatory and respiratory systems; H53.8 Other visual disturbances; Z86.79 Personal history of other diseases of the circulatory system
CPT/HCPCS: 36415; 71045; 80053; 81003; 83605; 83880; 84484; 85025; 85610; 85730; 87040; 87502; 93005; 99284; A9270-GY

== ENCOUNTER 2017-08-26 14:34 | Emergency (ER) | payer MEDICARE, OTHER ==
[2017-08-26 15:43] LABS: ABS Basophils 0 10^3/ul (0-0.2); ABS Eosinophils 0.3 10^3/ul (0-0.6); ABS Lymphocytes 0.9 10^3/ul (1.0-4.8); ABS Monocytes 0.5 10^3/ul (0-0.8); ABS Neutrophils 3.7 10^3/ul (1.5-7.7); ABS Nucleated RBC 0 10^3/ul; Eosinophil % 5.8 % (0-6); Hematocrit 44 % (35-47); Hemoglobin 14.4 g/dl (12.0-16.0); Lymphocyte % 16.4 % (25-47); Mean Corpuscular HGB Conc 33 g/dl (31-36); Mean Corpuscular Hemoglobin 30 pg (27-31); Mean Corpuscular Volume 92 fL (80-97); Mean Platelet Volume 11 um3 (7.4-10.4); Nucleated Red Blood Cells % 0.1; Platelet Count 128 10^3/ul (150-450); Red Cell Distribution Width 17 % (10.5-15); White Blood Count 5.5 10^3/ul (3.5-10.8)
[2017-08-26 15:49] LABS: INR 1.2 (0.77-1.02)
[2017-08-26 15:57] LABS: EGFR Non-African American 50.9 (>60)
[2017-08-26] MEDS ORDERED: Carvedilol TAB* 6.25 MG PO ONE (18:00)
[2017-08-26] MEDS ORDERED: Rivaroxaban TAB(*) 15 MG PO ONE (18:26)
[2017-08-26 19:03] VITALS: BP 180/82
--- NOTE | 2017-08-26 20:00 | ED ---
Blaine Rajan Stephanie, scribed for Jose Dsouza MD on 08/26/17 at 1506 . Hypertension - HPI Summary HPI Summary: The pt is an 87 y/o F BIBA to the ED with c/o varying blood pressure. Per the pts daughter, on Wednesday the pts BP decreased to 76/51. Today the pts BP was 190/ 101. The pt recently had surgery for a malleolar fracture on the L ankle. Symptoms include blurred vision. - History of Current Complaint Chief Complaint: EDHypertension Stated Complaint: HIGH BP Time Seen by Provider: 08/26/17 14:41 Hx Obtained From: Patient, Family/Loans Officer - daughter Onset/Duration: Started Hours Ago, Still Present Timing: Constant Aggravating Factor(s): Nothing Alleviating Factor(s): Nothing Associated Signs & Symptoms: Vision Changes - blurred vision - Allergies/Home Medications Allergies/Adverse Reactions: Allergies Allergy/AdvReac Type Severity Reaction Status Date / Time digoxin Allergy Hair Loss Verified 08/26/17 16:18 diltiazem Allergy Unknown Verified 08/26/17 16:19 Reaction Details dofetilide [From Tikosyn] Allergy Unknown Verified 08/26/17 16:20 Reaction Details latex Allergy Unknown Verified 08/26/17 16:19 Reaction Details metoprolol Allergy Unknown Verified 08/26/17 16:18 Reaction Details peanut Allergy Unknown Verified 08/26/17 16:18 Reaction Details pravastatin Allergy Unknown Verified 08/26/17 16:19 Reaction Details Sulfa (Sulfonamide Allergy Unknown Verified 08/26/17 16:19 Antibiotics) Reaction Details sulfamethoxazole Allergy Diarrhea Verified 08/26/17 16:20 [From Bactrim] trimethoprim [From Bactrim] Allergy Diarrhea Verified 08/26/17 16:20 valsartan Allergy Unknown Verified 08/26/17 16:19 Reaction Details Home Medications: Home Medications Biotin 10,000 mcg PO DAILY 08/26/17 [History Confirmed 08/26/17] Calcium Carb/Mag Ox/Zinc Sulf [Calcium & Magnesium + Zin 334-134-5 mg] 1 tab PO DAILY 08/26/17 [History Confirmed 08/26/17] Cephalexin CAP* [Keflex CAP*] 500 mg PO BID 08/26/17 [History Confirmed 08/26/17 ] Multivitamins/Minerals TAB* [Theragran/minerals TAB*] 1 tab PO DAILY 08/26/17 [ History Confirmed 08/26/17] Naproxen Sodium [Aleve] 220 mg PO Q12HR PRN 08/26/17 [History Confirmed 08/26/17 ] Triamcinolone 0.1% CREAM (NF) [Kenalog 0.1% Cream (NF)] 1 applic TOPICAL DAILY PRN 08/26/17 [History Confirmed 08/26/17] diPHENhydraMINE PO* [Benadryl PO 25 MG TAB*] 25 mg PO DAILY PRN 08/26/17 [ History Confirmed 08/26/17] PMH/Surg Hx/FS Hx/Imm Hx Cardiovascular History: Reports: Hx Congestive Heart Failure, Hx Hypertension - on meds, Hx Pacemaker/ICD - [employer] Comment Only: Other Cardiovascular Problems/Disorders - a fib Respiratory History: Denies: Other Respiratory Problems/Disorders GI History: Reports: Hx Gastroesophageal Reflux Disease Denies: Other GI Disorders History: Reports: Other Problems/Disorders - urinary incontinence Musculoskeletal History: Reports: 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 Left total hip, 2016, [facility]. tonsilectomy, age 8. L ankle, 2018 Hx Anesthesia Reactions: No Infectious Disease History: No Infectious Disease History: Denies: Traveled Outside the [place] in Last 30 Days - Family History Known Family History: Positive: Cardiac Disease - CHF Negative: Diabetes - Social History Occupation: Retired Lives: At [facility] [employer] Alcohol Use: None Alcohol Amount: I drink a lot Hx Substance Use: No Substance Use Type: Reports: None Hx Tobacco Use: No Smoking Status (MU): Never Smoked Tobacco Review of Systems Negative: Fever Positive: Blurred Vision Positive: Other - high and low blood pressure All Other Systems Reviewed And Are Negative: Yes Physical Exam - Summary Physical Exam Summary: Appearance: The patient is well-nourished in no acute distress and in no acute pain. Skin: The skin is warm and dry and skin color reflects adequate perfusion. HEENT: The head is normocephalic and atraumatic. The pupils are equal and reactive. The conjunctivae are clear and without drainage. Nares are patent and without drainage. Mouth reveals moist mucous membranes and the throat is without erythema and exudate. The external ears are intact. The ear canals are patent and without drainage. The tympanic membranes are intact. Neck: the neck is supple with full range of motion and non-tender. There are no carotid bruits. There is no neck vein distension. Respiratory: Chest is non-tender. Lungs are clear to auscultation and breath sounds are symmetrical and equal. Cardiovascular: Heart is regular rate and rhythm. There is no murmur or rub auscultated. There is no peripheral edema and pulses are symmetrical and equal. Abdomen: The abdomen is soft and non-tender. There are normal bowel sounds heard in all four quadrants and there is no organomegaly palpated. Musculoskeletal: There is no back tenderness noted. Extremities are non-tender with full range of motion. There is good capillary refill. There is no peripheral edema or calf tenderness elicited. Neurological: Patient is alert and oriented to person, place and time. The patient has symmetrical motor strength in all four extremities. Cranial nerves are grossly intact. Deep tendon reflexes are symmetrical and equal in all four extremities. Psychiatric: The patient has an appropriate affect and does not exhibit any anxiety or depression Triage Information Reviewed: Yes Vital Signs On Initial Exam: Initial Vitals Temp Pulse Resp BP Pulse Ox 97.7 F 70 14 187/101 95 08/26/17 14:41 08/26/17 14:41 08/26/17 14:41 08/26/17 14:41 08/26/17 14:41 Vital Signs Reviewed: Yes Diagnostics - Vital Signs Vital Signs Temp Pulse Resp BP Pulse Ox 08/26/17 14:41 97.7 F 70 14 187/101 95 - Laboratory Lab Results: Lab Results 08/26/17 08/26/17 08/26/17 Range/Units 15:30 15:30 15:30 WBC 5.5 (3.5-10.8) 10^3/ul RBC 4.80 (4.0-5.4) 10^6/ul Hgb 14.4 (12.0-16.0) g/dl Hct 44 (35-47) % MCV 92 (80-97) fL MCH 30 (27-31) pg MCHC 33 (31-36) g/dl RDW 17 H (10.5-15) % Plt Count 128 L (150-450) 10^3/ul MPV 11 H (7.4-10.4) um3 Neut % (Auto) 67.1 (38-83) % Lymph % (Auto) 16.4 L (25-47) % [place] % (Auto) 10.0 H (0-7) % Eos % (Auto) 5.8 (0-6) % Baso % (Auto) 0.7 (0-2) % Absolute Neuts (auto) 3.7 (1.5-7.7) 10^3/ul Absolute Lymphs (auto) 0.9 L (1.0-4.8) 10^3/ul Absolute Monos (auto) 0.5 (0-0.8) 10^3/ul Absolute Eos (auto) 0.3 (0-0.6) 10^3/ul Absolute Basos (auto) 0 (0-0.2) 10^3/ul Absolute Nucleated RBC 0 10^3/ul Nucleated RBC % 0.1 INR (Anticoag Therapy) (0.77-1.02) Sodium 135 (133-145) mmol/L Potassium 4.2 (3.5-5.0) mmol/L Chloride 100 L (101-111) mmol/L Carbon Dioxide 29 (22-32) mmol/L Anion Gap 6 (2-11) mmol/L BUN 23 (6-24) mg/dL Creatinine 1.03 H (0.51-0.95) mg/dL Est GFR ( Amer) 65.5 (>60) Est GFR (Non-Af Amer) 50.9 (>60) BUN/Creatinine Ratio 22.3 H (8-20) Glucose 92 (70-100) mg/dL Lactic Acid (0.5-2.0) mmol/L Calcium 9.6 (8.6-10.3) mg/dL Total Bilirubin 0.90 (0.2-1.0) mg/dL AST 19 (13-39) U/L ALT 10 (7-52) U/L Alkaline Phosphatase 61 (34-104) U/L Troponin I 0.00 (<0.04) ng/mL B-Natriuretic Peptide 154 H ( - 100) pg/mL Total Protein 6.9 (6.4-8.9) g/dL Albumin 4.1 (3.2-5.2) g/dL Globulin 2.8 (2-4) g/dL Albumin/Globulin Ratio 1.5 (1-3) 08/26/17 08/26/17 Range/Units 15:30 15:30 WBC (3.5-10.8) 10^3/ul RBC (4.0-5.4) 10^6/ul Hgb (12.0-16.0) g/dl Hct (35-47) % MCV (80-97) fL MCH (27-31) pg MCHC (31-36) g/dl RDW (10.5-15) % Plt Count (150-450) 10^3/ul MPV (7.4-10.4) um3 Neut % (Auto) (38-83) % Lymph % (Auto) (25-47) % [place] % (Auto) (0-7) % Eos % (Auto) (0-6) % Baso % (Auto) (0-2) % Absolute Neuts (auto) (1.5-7.7) 10^3/ul Absolute Lymphs (auto) (1.0-4.8) 10^3/ul Absolute Monos (auto) (0-0.8) 10^3/ul Absolute Eos (auto) (0-0.6) 10^3/ul Absolute Basos (auto) (0-0.2) 10^3/ul Absolute Nucleated RBC 10^3/ul Nucleated RBC % INR (Anticoag Therapy) 1.20 H (0.77-1.02) Sodium (133-145) mmol/L Potassium (3.5-5.0) mmol/L Chloride (101-111) mmol/L Carbon Dioxide (22-32) mmol/L Anion Gap (2-11) mmol/L BUN (6-24) mg/dL Creatinine (0.51-0.95) mg/dL Est GFR ( Amer) (>60) Est GFR (Non-Af Amer) (>60) BUN/Creatinine Ratio (8-20) Glucose (70-100) mg/dL Lactic Acid 1.0 (0.5-2.0) mmol/L Calcium (8.6-10.3) mg/dL Total Bilirubin (0.2-1.0) mg/dL AST (13-39) U/L ALT (7-52) U/L Alkaline Phosphatase (34-104) U/L Troponin I (<0.04) ng/mL B-Natriuretic Peptide ( - 100) pg/mL Total Protein (6.4-8.9) g/dL Albumin (3.2-5.2) g/dL Globulin (2-4) g/dL Albumin/Globulin Ratio (1-3) Result Diagrams: 08/26/17 15:30 08/26/17 15:30 Lab Statement: Any lab studies that have been ordered have been reviewed, and results considered in the medical decision making process. - EKG 15:07 Cardiac Rate: NL EKG Interpretation: Paced rhythm, 70 BPM Hypertension Course/Dx - Course Course Of Treatment: Ms. Nguyen was brought in by her family for elevated blood pressure. Her only symptom is that she feels "blah". She has been running high a lot but she did have an episode of low blood pressure a couple days ago that resolved on its own. She was symptomatic with that. Her W/U revealed no end organ concerns and she remained borderline high throughout her stay. I gave her 6.25 mgs of carvediol for her evening dose of 3.125 and her BP came down a bit and she remained stable. I recommended that they increase her dose to 6.25 BID from 3.125 BID and F/U closely with her PMD. - Diagnoses Provider Diagnoses: HTN (hypertension) Discharge - Discharge Plan Condition: Stable Disposition: HOME Patient Education Materials: Chronic Hypertension (ED) Referrals: Jimi Stewart MD [Primary Care Provider] - 1 Week Additional Instructions: Increase Coreg to 6.25 BID The documentation as recorded by the Blaine molina Stephanie accurately reflects the service I personally performed and the decisions made by me, Jose Dsouza MD.
== END 2017-08-26 19:26 | disposition home or self-care (01) ==
LOC: ED 14:34
DX: I10 Essential (primary) hypertension (principal); H53.8 Other visual disturbances; Z86.79 Personal history of other diseases of the circulatory system; Z87.19 Personal history of other diseases of the digestive system
CPT/HCPCS: 36415; 80053; 83605; 83880; 84484; 85025; 85610; 93005; 99284; A9270-GY